=== PATIENT | male | born 1990 | race Hispanic/Latino ===

== ENCOUNTER 2016-11-25 01:56 | Emergency (ER) | payer SELFPAY ==
[2016-11-25 02:10] VITALS: BP 157/93
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
== END 2016-11-25 06:13 | disposition home or self-care (01) ==
LOC: ED 01:56
DX: Z04.1 Encounter for examination and observation following transport accident (principal)
CPT/HCPCS: 99282